=== PATIENT | female | born 1975 | race Caucasian/White ===

== ENCOUNTER → 2020-02-19 07:55 | Outpatient (CLI) | payer OTHER, SELFPAY ==
--- NOTE | ~2020-02-19 | MM_ITS ---
EXAMINATION: MM screening aguilar BI w vida HISTORY: Screening mammogram TECHNIQUE: Craniocaudal and mediolateral oblique 3-D tomosynthesis images were obtained and synthetic 2-D images were generated. CAD analysis was submitted and interpreted. COMPARISON: 07/20/2017, 11/05/2014 bilateral digital screening mammogram examinations BREAST PARENCHYMAL COMPOSITION: There are scattered areas of fibroglandular density. FINDINGS: There is no evidence of suspicious mass, calcification, or architectural distortion to sugg est malignancy in either breast. There has been no suspicious interval change. IMPRESSION: 1. No mammographic evidence of malignancy. 2. Recommend routine screening mammography in one year. BI-RADS Category 1: Negative Reviewed, dictated and finalized at location A. UITMENT OFFICER
== END ==
PROVIDERS: PCP Family Medicine; Visit Provider Nurse Practitioner
DX: Z12.31 Encounter for screening mammogram for malignant neoplasm of breast (principal)
CPT/HCPCS: 77063; 77067

== ENCOUNTER → 2021-02-13 08:09 | Outpatient (CLI) | payer OTHER, SELFPAY ==
--- NOTE | ~2021-02-13 | US_ITS ---
EXAMINATION: US abdomen complete EXAM DATE: 02/13/2021 09:01 INDICATION: R10.11 - Right upper quadrant pain. TECHNIQUE: Multiple grayscale and Doppler images of the complete abdomen were obtained (by a technolo gist who performed the scan) and subsequently reviewed. There is no prior study for comparison. FINDINGS: The abdominal aorta is normal in caliber. Visualized portion IVC is patent. The pancreatic head a nd body are normal in appearance. The pancreatic tail is not visualized. There is echogenic liver parenchyma, hepatic steatosis. There are no focal liver lesions identified. There is no evidence of intrahepatic biliary duct dilation. Portal venous flow was seen in the he patopedal, normal direction and has normal Doppler waveform. Common bile duct measures 3 mm, which is normal. The gallbladder wall is normal in thickness, with ex pected amount of distention. No sonographic evidence of pericholecystic fluid. There is no cholelit hiases. Technologist performing exam reports patient did not demonstrate sonographic Segovia's sign. Please note that this sign is less reliable in patients who have received pain medication. Right kidney: There is normal contour and echogenicity. It measures 10.4 x 4.6 x 4.8 centimeters. There are no focal renal lesions identified. There is no hydronephrosis. Left kidney: There is normal contour and echogenicity. It measures 9.0 x 6.0 x 5.6 centimeters. Th ere are no focal renal lesions identified. There is no hydronephrosis. The spleen measures 11 centimeters and is morphologically normal. IMPRESSION: 1. Hepatic steatosis. Reviewed, dictated and finalized at location A. ORATE LEGAL ASSISTANT IMPRESSION: 1. Hepatic steatosis.
== END ==
PROVIDERS: PCP Family Medicine; Visit Provider Nurse Practitioner Family
DX: R10.11 Right upper quadrant pain (principal); K76.0 Fatty (change of) liver, not elsewhere classified
CPT/HCPCS: 76700

== ENCOUNTER 2021-02-25 07:50 | Outpatient (CLI) | payer OTHER, SELFPAY ==
[2021-02-25 09:51] LABS: Hematocrit 43.2 % (37.0-47.0); Hemoglobin 14.4 g/dL (12.0-15.0); Mean Corpuscular HGB Conc 33.3 g/dl (32-36); Mean Corpuscular Hemoglobin 31.5 pg (26-34); Mean Corpuscular Volume 94.5 fl (80-100); Mean Platelet Volume 10.5 fl (7.4-10.4); Platelet Count Result 232 k/mm3 (150-375); Red Blood Count 4.57 M/mm3 (4.2-5.4); White Blood Count 9.6 K/mm3 (4.5-10.0)
[2021-02-25 10:04] LABS: Alanine Aminotransferase 67 U/L (4-35); Albumin Level 4.2 g/dL (3.5-5.1); Alkaline Phosphatase 120 U/L (38-126); Anion Gap 11 mmol/L (8-16); Aspartate Amino Transferase 52 U/L (14-36); Bilirubin,Total 0.7 mg/dL (0.2-1.3); Blood Urea Nitrogen 11 mg/dL (7-17); Calcium 8.9 mg/dL (8.4-10.2); Carbon Dioxide 23 mmol/L (22-30); Chloride 106 mmol/L (98-107); Cholesterol 234 mg/dL (0-200); Estimated Glomerular Filt Rate > 60; Glucose 107 mg/dL (65-110); HDL Direct 41 mg/dL; Potassium 3.7 mmol/L (3.4-5.0); Sodium 140 mmol/L (137-145); Triglycerides 133 mg/dL (<150)
[2021-02-25 10:14] LABS: LDL Cholesterol Direct 148 mg/dL
[2021-02-27 20:42] LABS: GGT 24 U/L (3-55)
== END 2021-02-25 07:51 | disposition home or self-care (01) ==
LOC: ANHLAB 07:52
PROVIDERS: PCP Family Medicine; Visit Provider Nurse Practitioner Family
DX: K76.0 Fatty (change of) liver, not elsewhere classified (principal); E78.2 Mixed hyperlipidemia
CPT/HCPCS: 36415; 80053; 80061; 82977; 85027

== ENCOUNTER 2021-10-28 09:17 | Outpatient (CLI) | payer OTHER, SELFPAY ==
[2021-10-28 10:13] LABS: Alanine Aminotransferase 32 U/L (6-35); Albumin Level 3.9 g/dL (3.5-5.1); Alkaline Phosphatase 111 U/L (38-126); Anion Gap 11 mmol/L (8-16); Aspartate Amino Transferase 34 U/L (14-36); Bilirubin,Total 0.7 mg/dL (0.2-1.3); Blood Urea Nitrogen 13 mg/dL (7-17); Calcium 8.4 mg/dL (8.4-10.2); Carbon Dioxide 21 mmol/L (22-30); Chloride 108 mmol/L (98-107); Cholesterol 231 mg/dL (0-200); Estimated Glomerular Filt Rate > 60; Glucose 119 mg/dL (65-110); HDL Direct 34 mg/dL; Potassium 4.3 mmol/L (3.4-5.0); Sodium 140 mmol/L (137-145); Triglycerides 177 mg/dL (<150)
[2021-10-28 10:24] LABS: LDL Cholesterol Direct 144 mg/dL
[2021-10-28 13:08] LABS: Hemoglobin A1C 5.4 % (<5.7)
== END 2021-10-28 09:18 | disposition home or self-care (01) ==
LOC: ANHLAB 09:20
PROVIDERS: PCP Family Medicine; Visit Provider Nurse Practitioner Family
DX: Z13.1 Encounter for screening for diabetes mellitus (principal); R74.8 Abnormal levels of other serum enzymes; K76.0 Fatty (change of) liver, not elsewhere classified; R73.09 Other abnormal glucose; Z13.29 Encounter for screening for other suspected endocrine disorder; E78.2 Mixed hyperlipidemia
CPT/HCPCS: 36415; 80053; 80061; 83036; 84443

== ENCOUNTER 2023-12-19 08:10 | Outpatient (CLI) | payer OTHER, SELFPAY ==
--- NOTE | ~2023-12-19 | MMUS_ITS ---
EXAMINATION: MM diagnostic aguilar BI w vida, US breast LT limited HISTORY: Palpable left breast lump TECHNIQUE: Additional 3-D tomosynthesis images of the breasts were performed and synthetic 2-D images were generated. CAD analysis was submitted and interpreted. High resolution Limited left breast ultr asound was performed. COMPARISON: Comparison to multiple prior studies sequentially, with oldest reviewed study dated 07/20. BREAST PARENCHYMAL COMPOSITION: Not Dense: The breasts are almost entirely fatty. FINDINGS: MAMMOGRAPHIC FINDINGS: There are no suspicious masses, calcifications or architectural distortion in either breast to sugges t malignancy. ULTRASOUND: Limited left breast ultrasound: Normal heterogeneous echotexture without focal solid or cystic mass. IMPRESSION: 1. No evidence for malignancy in either breast. 2. Routine yearly screening mammogram and regular clinical breast examination are recommended. BI-RADS Category 1: Negative Reviewed, dictated and finalized at location B. IMPRESSION: 1. No evidence for malignancy in either breast. 2. Routine yearly screening mammogram and regular clinical breast examination a re recommended. BI-RADS Category 1: Negative
== END 2023-12-19 08:11 | disposition home or self-care (01) ==
LOC: MICIMG 08:11
PROVIDERS: PCP Family Medicine; Visit Provider Obstetrics & Gynecology Gynecology
DX: N63.20 Unspecified lump in the left breast, unspecified quadrant (principal)
CPT/HCPCS: 76642; 77062; 77066; G0279

== ENCOUNTER 2024-05-28 08:19 | Outpatient (CLI) | payer OTHER, SELFPAY ==
--- OUTSIDE RECORDS SUMMARY | 2024-05-28 08:31 | XMS_ITS | Referral Summary ---
Author Organization [facility] [employer] Address [address] [place] [address] Care Team Providers Care Court Stenographer Name Role Phone Juan Carlos Oshea MD Primary Care Provider [phone] Source Comments [facility] [employer],non-owned Affiliates and Associated Physician Practices is amultiple site organization consisting of ambulatory clinics and hospital sitesin [place], [place], [place] and [place]. This disclosure is being madepursuant to the Care Everywhere program and may not contain all information available regarding this patient. Last updated 17.[employer] Allergies No known active allergies Medications * Be aware that medications may not be up to date on this document. Alwaysverify current medications with the patient. Medication Sig Dispensed Refills Start Date End Date Status Multiple Vitamin (MULTIVITAMINS PO) Active Levocetirizine Dihydrochloride (XYZAL PO) Active VITAMIN D, CHOLECALCIFEROL, PO Activ e Escitalopram Oxalate (LEXAPRO PO)Indications:for anxiety Reasons: for anxiety Active Social History Tobacco Use Types Packs/Day Years Used Date Smoking Tobacco: Never Smokeless Tobacco: Never Sex and Gender Information Value Date Recorded Sex Assigned at Female 02/10/2024 4:06 PM TOBACCO WEIGHER Gender Identity Female 02/10/2024 4:06 PM TOBACCO WEIGHER Sexual Orientation Straight 02/10/2024 4: 06 PM TOBACCO WEIGHER Last Filed Vital Signs Vital Sign Reading Time Taken Comments Blood Pressure 110/70 05/14/2018 9:55 AM TOBACCO WEIGHER Pulse 115 05/14/2018 9:55 AM TOBACCO WEIGHER Temperature 38 C (100.4 F) 05/14/2018 9:55 AM TOBACCO WEIGHER Respiratory Rate 19 02/10/2018 5:41 PM TOBACCO WEIGHER Oxygen Saturation 96% 05/14/2018 9:55 AM TOBACCO WEIGHER Inhaled Oxygen Concentration - - Weight 83.9 kg (185 lb) 05/14/2018 9:55 AM TOBACCO WEIGHER Height 160 cm (5' 3 ) 05/14/2018 9:55 AM TOBACCO WEIGHER Body Mass Index 32.77 05/14/2018 9:55 AM TOBACCO WEIGHER Plan of Treatment Not on file Care Teams Court Stenographer Relationship Specialty Start Date End Date Juan Carlos Oshea MD [address] [place] [address] PCP - General Family Medicine 07/18/16
--- OUTSIDE RECORDS SUMMARY | 2024-05-28 08:31 | XMS_ITS | Clinical Summary ---
Author Organization [facility] [employer] Address [address] [place] [address] Care Team Providers Care Dental Instructor Name Role Phone Juan Carlos Oshea MD Primary Care Provider [phone] Source Comments [employer],non-owned Affiliates and Associated Physician Practices is amultiple site organization consisting of ambulatory clinics and hospital sitesin [place], [place], [place] and [place]. This disclosure is being madepursuant to the Care Everywhere program and may not contain all information available regarding this patient. Last updated 17.[employer] Allergies No known active allergies Medications * [...] Sex Assigned at Female 02/10/2024 4:06 PM ROTARY SURFACE GRINDER Gender Identity Female 02/10/2024 4:06 PM ROTARY SURFACE GRINDER Sexual Orientation Straight 02/10/2024 4: 06 PM ROTARY SURFACE GRINDER Last Filed Vital Signs Vital Sign Reading Time Taken Comments Blood Pressure 110/70 05/14/2018 9:55 AM ROTARY SURFACE GRINDER Pulse 115 05/14/2018 9:55 AM ROTARY SURFACE GRINDER Temperature 38 C (100.4 F) 05/14/2018 9:55 AM ROTARY SURFACE GRINDER Respiratory Rate 19 02/10/2018 5:41 PM ROTARY SURFACE GRINDER Oxygen Saturation 96% 05/14/2018 9:55 AM ROTARY SURFACE GRINDER Inhaled Oxygen Concentration - - Weight 83.9 kg (185 lb) 05/14/2018 9:55 AM ROTARY SURFACE GRINDER Height 160 cm (5' 3 ) 05/14/2018 9:55 AM ROTARY SURFACE GRINDER Body Mass Index 32.77 05/14/2018 9:55 AM ROTARY SURFACE GRINDER Plan of Treatment Health Maintenance Due Date Last Done Comments COLOGUARD (AGES 45-75) - COL ON CA SCREENING 1974 COLON MONITORING 1974 COLONOSCOPY - COLON CA SCREENING 1974 CT COLONOGRAPHY - COLON CA SCREENING 1974 Colorectal Cancer Screening 1974 FIT - COLON CA SCREENING 1974 FLEX SIG - COLON CA SCREENING 1974 LIPID TESTING 1974 PAP SMEAR 1974 HIV SCREENING 1989 HEPATITIS C SCREENING 03/13/1992 DTAP/TDAP/TD VACCINES (1 - Tdap) 1993 HEPATITIS B VACCINE (1 of 3 - 19+ 3-dose series) 1993 SCREENING FOR DIABETES 04/05/2017 COVID-19 VACCINE (1 - 2023-2 5 season) 2023 INFLUENZA VACCINE (#1) 2023 PNEUMOCOCCAL VACCINE 50+ (1 of 1 - PCV) 2024 ZOSTER VACCINE (1 of 2) 2024 DEPRESSION SCREENING 03/25/2024 MAMMOGRAM 01/30/2026 01/31/2024 HIB VACCINE Aged Out No longer eligi ble based on patient's age to complete this topic HPV VACCINE Aged Out No longer eligi ble based on patient's age to complete this topic MENINGOCOCCAL (Group B) VACCINE Aged Out No longer eligible based on patient's age to complete this topic MENINGOCOCCAL VACCINE Aged Out No misbah glenn eligible based on patient's age to complete this topic PNEUMOCOCCAL VACCINE Aged Out No long er eligible based on patient's age to complete this topic Care Teams Dental Instructor Relationship Specialty Start Date End Date Juan Carlos Oshea MD [address] [place] [address] PCP - General Family Medicine 07/18/16
--- OUTSIDE RECORDS SUMMARY | 2024-05-28 08:31 | XMS_ITS | Patient Health Summary ---
Author Organization [facility] [employer] Address [address] [place] [address] Care Team Providers Care Bit Sharpener Name Role Phone Juan Carlos Oshea MD Primary Care Provider [phone] Note from [facility],non-owned Affiliates and Associated Physician Practices is amultiple site organization consisting of ambulatory clinics and hospital sitesin [place], [place], [place] and [place]. This disclosure is being madepursuant to the Care Everywhere program and may not contain all information available regarding this patient. Last updated 17.[facility] [employer] Allergies No known active allergies Medications * Be aware that medications may not be up to date on this document. Alwaysverify current medications with the patient. * Multiple Vitamin (MULTIVITAMINS PO) * Levocetirizine Dihydrochloride (XYZAL PO) * VITAMIN D, CHOLECALCIFEROL, PO * Escitalopram Oxalate (LEXAPRO PO) Reasons: for anxiety Social History Tobacco Use Types Packs/Day Years Used Date Smoking Tobacco: Never Smokeless Tobacco: Never Sex and Gender Information Value Date Recorded Sex Assigned at Female 02/10/2024 4:06 PM SUPERVISOR ELEMENTARY EDUCATION Gender Identity Female 02/10/2024 4:06 PM SUPERVISOR ELEMENTARY EDUCATION Sexual Orientation Straight 02/10/2024 4: 06 PM SUPERVISOR ELEMENTARY EDUCATION Last Filed Vital Signs Vital Sign Reading Time Taken Comments Blood Pressure 110/70 05/14/2018 9:55 AM SUPERVISOR ELEMENTARY EDUCATION Pulse 115 05/14/2018 9:55 AM SUPERVISOR ELEMENTARY EDUCATION Temperature 38 C (100.4 F) 05/14/2018 9:55 AM SUPERVISOR ELEMENTARY EDUCATION Respiratory Rate 19 02/10/2018 5:41 PM SUPERVISOR ELEMENTARY EDUCATION Oxygen Saturation 96% 05/14/2018 9:55 AM SUPERVISOR ELEMENTARY EDUCATION Inhaled Oxygen Concentration - - Weight 83.9 kg (185 lb) 05/14/2018 9:55 AM SUPERVISOR ELEMENTARY EDUCATION Height 160 cm (5' 3 ) 05/14/2018 9:55 AM SUPERVISOR ELEMENTARY EDUCATION Body Mass Index 32.77 05/14/2018 9:55 AM SUPERVISOR ELEMENTARY EDUCATION Procedures * STREP A SCREEN - POINT OF CARE (AMB) STL(Performed 05/14/2018) Performed for Acute URI * INFLUENZA A+B - POINT OF CARE (AMB)(Performed 05/14/2018) Performed for Acute URI * CULTURE URINE(Performed 02/10/2018) Performed for Acute cystitis without hematuria * URINALYSIS AUTO - POINT OF CARE (AMB) STL(Performed 02/10/2018) Performed for Acute cystitis without hematuria * STREP A SCREEN - POINT OF CARE (AMB) STL(Performed 07/18/2016) Performed for Acute pansinusitis, recurrence not specified Results * STREP A SCREEN (05/14/2018) Only the most recent of2 resultswithin the time period is included. Strep A Rapid POCT Negative Negative Strep A Internal Control Present Lot # [id number] Expiration Date 12/23/19 Throat ENTIRE THROAT (SURFACE REGION OF NECK) / Unknown 05/14/2018 Melvi Medel APRN-UTILIZATION MANAGER LAB - POINT OF CA RE ORDERABLES * INFLUENZA A+B - POINT OF CARE (AMB) (05/14/2018) Influenza A Antigen Rapid Negative Negative Influenza B Antigen Rapid Negative Negative Influenza Internal Control yes NEGATIVE - POSITIVE Influenza Lot Number [id number] Influenza Expiration Date 11/27/19 Other NASOPHARYNGEAL SWAB / Unknown 05/14/2018 Melvi Medel APRN-UTILIZATION MANAGER LAB - POINT OF CA RE ORDERABLES * CULTURE URINE (02/10/2018 5:51 PM SUPERVISOR ELEMENTARY EDUCATION) Pathologist [facility] Urine Culture Routine Final report [facility] ACCOUNT BILL Result 1 [facility] ACCOUNT BILL Comment: Mixed urogenital brooke 10,000-25,000 colony forming units per mL Urine URINE SPECIMEN OBTAINED BY CLEAN CATCH PROCEDURE / Unknown 02/10/2018 5:51 PM SUPERVISOR ELEMENTARY EDUCATION 02/11/2018 Narrative Resulting Agency Comment [facility] [id number] [facility] [id number] Melvi Meedl CONCRETE RUBBER-UTILIZATION MANAGER LAB - MICROBIOLOG Y ORDERABLES [facility] [place] [address] [place] [address] * URINALYSIS AUTO - POINT OF CARE (AMB) STL (02/10/2018) Clarity UA POCT clear Color UA POCT Light yellow Leukocyte UA neg Negative Nitrite UA POCT neg Negative Urobilinogen UA 0.2 0.1 - 1.0 Protein UA POCT neg Negative pH UA 5.0 5.0 - 8.0 pH units Blood UA neg Negative Specific [place] UA POCT 1.020 1.002 - 1.030 Ketone UA neg Negative Bilirubin UA POCT neg Negative Glucose UA neg Negative Expiration Date 11/06/19 Lot # [id number] Verified Yes Yes Urine URINE / Unknown 02/10/2018 Melvi M Gianfranco OLIVAREZN-UTILIZATION MANAGER LAB - POINT OF CA RE ORDERABLES Care Teams Bit Sharpener Relationship Specialty Start Date End Date Juan Carlos Oshea MD [address] [place] [address] PCP - General Family Medicine 07/18/16
--- OUTSIDE RECORDS SUMMARY | 2024-05-28 08:31 | XMS_ITS | Clinical Summary ---
Author Organization [facility] Address [address] [place] [id number] Care Team Providers Care Marine Designer Name Role Phone Juan Carlos Oshea MD Primary Care Provider [phone] Paulina Perkins MD Unavailable [phone] Allergies Active Allergy Reactions Criticality Noted Date Comments Honey Diarrhea Low 09/04/2012 Latex Rash Medium 09/04/2012 Medications levocetirizine (XYZAL) 5 mg tablet Take 1 tablet (5 mg total) by mouth every evening Active metFORMIN (GLUCOPHAGE) 500 mg tablet TAKE 1 TABLET BY MOUTH DAILY FOR 2 WEEKS THEN 2 TABLETS BY MOUTH DAILY. 12/22/2023 Active multivitamin tablet Take 1 tablet by mouth daily Active cholecalciferol (VITAMIN D-3) 2000 unit tablet Active PARoxetine (PAXIL) 10 mg tablet Take 1 tablet (10 mg total) by mouth daily 01/17/2024 Active Active Problems Problem Noted Date Diagnosed Date Sleep-disordered breathing 03/20/2017 Assessment & Plan (03/20/2017 12:30 PM MIRROR DEPARTMENT SUPERVISOR): Patient's home sleep study revealed no evidence of obstructive sleep apnea. It appears as though patient's snoring and sleep disordered breathing is primarily centered around her obesity. Patient admittedly states that when she loses weight her snoring resolves and her sleep pattern improves. Patient would benefit from nutritional and dietary consultation and weight loss program. I also gave patient information on oral appliance for mandibular advancement that she can use to help with her excessive snoring. BMI 36.0-36.9,adult 01/21/2017 Assessment & Plan (01/21/2017 3:29 PM CDT): Patient was counseled today on reducing BMI through lifestyle modification as means to reduce sleep symptoms. Patient provided recommendations on mild to moderate intensity exercise daily. Snoring 01/16/2017 Assessment & Plan (01/21/2017 3:26 PM CDT): Ms. Hooker is a a 41 year old female who complains of snoring, sleep disturbance and daytime sleepiness. Symptoms have been progressive x 4 years. Based on patients history of present illness and examination today, I would like her to complete a home polysomnogram to evaluate for sleep apnea. Patient is in agreement with this plan. Order will be sent to [facility] for home polysomnogram x 3 nights. I will call with results and discuss follow up plan. Daytime sleepiness 01/16/2017 Assessment & Plan (01/16/2017 2:17 PM CDT): Merkel sleepiness score = 11. Umbilical hernia 09/11/2012 Ventral hernia 09/11/2012 Breast hypertrophy 09/10/2012 Excess skin of abdomen 09/10/2012 Encounters Date Type Department Care Team Description 05/05/2024 3:00 AM MIRROR DEPARTMENT SUPERVISOR - 05/05/2024 11:59 PM [facility] [place] [place] [address] Discharge Disposition: Discharge to home or self care from Last 3 Months Surgical History Surgery Date Site/Laterality Comments REDUCTION MAMMAPLASTY 03/25/2013 - 03/24/2014 Bilateral CHOLECYSTECTOMY 03/25/2009 - 03/24/2010 SECTION 03/25/2003 - 03/24/2004 SECTION 03/25/2005 - 03/24/2006 HERNIA REPAIR 03/25/2013 - 03/24/2014 Family History Medical History Relation Name Comments Breast cancer Maternal Grandmother Breast cancer Paternal Grandmother Relation Name Status Comments Maternal Grandmother Paternal Grandmother Social History Tobacco Use Types Packs/Day Years Used Date Smoking Tobacco: Never Smokeless Tobacco: Never Alcohol Use Standard Drinks/Week Comments Yes 0 (1 standard drink = 0.6 oz pur e alcohol) Comments Unknown Sex and Gender Information Value Date Recorded Sex Assigned at Not on file Legal Sex Female 3:11 AM MIRROR DEPARTMENT SUPERVISOR Gender Identity Not on file Sexual Orientation Not on file Obstetrics History Last Filed Vital Signs Vital Sign Reading Time Taken Comments Blood Pressure 121/83 02/04/2024 10:04 AM MIRROR DEPARTMENT SUPERVISOR Pulse 89 02/04/2024 10:04 AM MIRROR DEPARTMENT SUPERVISOR Temperature 36.6 C (97.9 F) 02/04/2024 10:04 AM MIRROR DEPARTMENT SUPERVISOR Respiratory Rate 18 02/04/2024 10:04 AM MIRROR DEPARTMENT SUPERVISOR Oxygen Saturation 97% 02/04/2024 10:04 AM MIRROR DEPARTMENT SUPERVISOR Inhaled Oxygen Concentration - - Weight 87.1 kg (192 lb) 02/04/2024 10:01 AM MIRROR DEPARTMENT SUPERVISOR Height 158 cm (5' 2.21 ) 02/04/2024 10:01 AM MIRROR DEPARTMENT SUPERVISOR Body Mass Index 34.89 02/04/2024 10:01 AM MIRROR DEPARTMENT SUPERVISOR Plan of Treatment Health Maintenance Due Date Last Done Comments Breast Cancer Screening-Mammogram 1974 Cervical Cancer Screening 1974 Colon Cancer Screening-Colonoscopy 1974 Depression Screening 1974 Hepatitis C Screening 1974 DTaP/Tdap/Td Vaccine (1 - Tdap) 1985 Hepatitis B Screening 1992 Regular Well Visit/Exam 18-64 1992 Influenza Vaccine (#1) 2023 02/03/2019 Zoster Vaccine (1 of 2) 2024 Pneumococcal vaccine <65 Aged Out No longer eligible based on patient's age to complete this topic Procedures Procedure Name Priority Date/Time Associated Diagnosis Comments HEPATITIS B SURFACE ANTIBODY (IMMUNE STATUS) Routine 05/05/2024 3:00 PM MIRROR DEPARTMENT SUPERVISOR from Last 3 Months Results * Hepatitis B surface antibody (immune status) Blood (05/05/2024 3:00 PM MIRROR DEPARTMENT SUPERVISOR) HBsAb (immune status) Nonreactive Comment:This result is consi stent with a lack of immunity to Hepatitis B Virus when used in the setting of routine screening. Current interpretative data was last revised on 21 Blood 05/05/2024 3:00 PM MIRROR DEPARTMENT SUPERVISOR 05/05/2024 6:31 PM MIRROR DEPARTMENT SUPERVISOR us Shaheed Page MD LAB MICROBIOLOGY - GENER AL ORDERABLES Final Result [facility] [place] [address] from Last 3 Months Insurance CHOICE PLUS CHOICE PLUS [facility] CHOICE PLUS Care Teams Marine Designer Relationship Specialty Start Date End Date Juan Carlos Oshea MD PCP - General Family Medicine 01/11/17 Paulina Perkins MD [address] [facility] [address] [place] [id number] Referring Physician Gynecology 01/16/24
--- OUTSIDE RECORDS SUMMARY | 2024-05-28 08:31 | XMS_ITS | Referral Summary ---
Author Organization [facility] Address [address] [place] [phone] Care Team Providers Care Ship Carpenter Name Role Phone Juan Carlos Oshea MD Primary Care Provider [phone] Paulina Perkins MD Unavailable [phone] Encounters Date Type Department Care Team Description 05/05/2024 3:00 AM PLUMBER - 05/05/2024 11:59 PM PLUMBER [place] [address] Discharge Disposition: Discharge to home or self care from Last 3 Months Allergies Active Allergy Reactions Criticality Noted Date [...] 03/20/2017 Assessment & Plan (03/20/2017 12:30 PM PLUMBER): Patient's home sleep study revealed no evidence [...] this plan. Order will be sent to [facility] for home polysomnogram x 3 nights. I will call with results and discuss follow up plan. Daytime sleepiness 01/16/2017 Assessment & Plan (01/16/2017 2:17 PM CDT): [place] sleepiness score = 11. Umbilical hernia 09/11/2012 Ventral hernia 09/11/2012 Breast hypertrophy 09/10/2012 Excess skin of abdomen 09/10/2012 Social History Tobacco Use Types Packs/Day Years Used Date Smoking Tobacco: Never Smokeless Tobacco: Never Alcohol Use Standard Drinks/Week Comments Yes 0 (1 standard drink = 0.6 oz pur e alcohol) Comments Unknown Sex and Gender Information Value Date Recorded Sex Assigned at Not on file Legal Sex Female 3:11 AM PLUMBER Gender Identity Not on file Sexual Orientation Not on file Last Filed Vital Signs Vital Sign Reading Time Taken Comments Blood Pressure 121/83 02/04/2024 10:04 AM PLUMBER Pulse 89 02/04/2024 10:04 AM PLUMBER Temperature 36.6 C (97.9 F) 02/04/2024 10:04 AM PLUMBER Respiratory Rate 18 02/04/2024 10:04 AM PLUMBER Oxygen Saturation 97% 02/04/2024 10:04 AM PLUMBER Inhaled Oxygen Concentration - - Weight 87.1 kg (192 lb) 02/04/2024 10:01 AM PLUMBER Height 158 cm (5' 2.21 ) 02/04/2024 10:01 AM PLUMBER Body Mass Index 34.89 02/04/2024 10:01 AM PLUMBER Plan of Treatment Not on file Procedures Procedure Name Priority Date/Time Associated Diagnosis Comments HEPATITIS B SURFACE ANTIBODY (IMMUNE STATUS) Routine 05/05/2024 3:00 PM PLUMBER from Last 3 Months Results * Hepatitis B surface antibody (immune status) Blood (05/05/2024 3:00 PM PLUMBER) HBsAb (immune status) Nonreactive Comment:This result is consi stent with a lack of immunity to Hepatitis B Virus when used in the setting of routine screening. Current interpretative data was last revised on 21 Blood 05/05/2024 3:00 PM PLUMBER 05/05/2024 6:31 PM PLUMBER us Shaheed Page MD LAB MICROBIOLOGY - GENER AL ORDERABLES Final Result Performing Organization Address City/State/[facility] Co de Phone Number [facility] [place] [address] from Last [address] [facility] CHOICE PLUS [facility]/PPO Address: [address] [place] [address] [facility]MO/PPO Address: [address] [place] [address] [facility] HMO/PPO Address: [address] [place] [address] [place] [address] Care Teams Ship Carpenter Relationship Specialty Start Date End Date Juan Carlos Oshea MD PCP - General Family Medicine 01/11/17 Paulina Perkins MD [address] [place] [address] Referring Physician Gynecology 01/16/24
--- OUTSIDE RECORDS SUMMARY | 2024-05-28 08:31 | XMS_ITS | Clinical Summary ---
Author Organization [facility] Address [address] [place] [id number] Phone Care Team Providers Care Aboriginal Education Worker Coordinator Name Role Phone Juan Carlos Oshea MD Primary Care Provider [phone] Allergies Active Allergy Reactions Criticality Noted Date Comments Honey Diarrhea Low 09/04/2012 Latex Rash Low 09/04/2012 Medications levocetirizine (XYZAL) 5 mg Oral tablet Take 5 mg by mouth Daily LATE. Active multivitamin (DAILY-JOEL) Oral tablet Take 1 Tab by mouth daily. Active Active Problems Problem Noted Date Diagnosed Date Umbilical hernia 09/11/2012 Ventral hernia 09/11/2012 Breast hypertrophy 09/10/2012 Excess skin of abdomen 09/10/2012 Social History Tobacco Use Types Packs/Day Years Used Date Smoking Tobacco: Never Alcohol Use Standard Drinks/Week Comments Yes 0 (1 standard drink = 0.6 oz pur e alcohol) 2/MONTH Comments Unknown Sex and Gender Information Value Date Recorded Sex Assigned at Not on file Legal Sex Female 10:09 AM CDT Gender Identity Not on file Sexual Orientation Not on file Last Filed Vital Signs Vital Sign Reading Time Taken Comments Blood Pressure 110/70 09/11/2012 11:39 AM CDT Pulse 74 09/11/2012 11:39 AM CDT Temperature 37.1 C (98.7 F) 09/11/2012 11:39 AM CDT Respiratory Rate 18 09/11/2012 11:39 AM CDT Oxygen Saturation 98% 09/11/2012 11:39 AM CDT Inhaled Oxygen Concentration - - Weight 85.7 kg (189 lb) 09/10/2012 6:35 AM CDT Height 160 cm (5' 3 ) 09/04/2012 10:03 AM CDT Body Mass Index 33.48 09/04/2012 10:03 AM CDT Plan of Treatment Health Maintenance Due Date Last Done Comments DTAP/TDAP/TD VACCINES (1 - Tdap) 1993 HEPATITIS B VACCINES (1 of 3 - 19+ 3-dose series) 02/23 CERVICAL CANCER SCREENING 2004 BREAST CANCER SCREENING 2014 COLORECTAL SCREENING 2019 Colorectal Cancer Screening 2019 FIT-DNA Q 3 years 2019 FIT/FOBT Q 1 year 2019 Flex Sig/CT Colonography Q 5 years 2019 INFLUENZA VACCINE (#1) 2023 ZOSTER VACCINE (1 of 2) 2024 Medical Devices Implanted Type Area Overhead Distribution Engineer Device Identifier Shelf Expiration Date Model / Serial / Lot Mesh Vicryl [id number] in Vkml - [id number] Implanted:Qty: 1 on 09/10/2012 by Heriberto Melendez MD at [facility] Mesh N/A: Abdomen [employer] 10/21/2016 VKML / / [id number] Description:Midline abdomen [facility] Advance Directives For more information, please contact: [phone] * Full Code (Latest Code Status on File) Date Activated Date Inactivated Comments 09/10/2012 2:04 PM 09/11/2012 6:00 PM * Full Code Date Activated Date Inactivated Comments 09/10/2012 8:26 AM 09/10/2012 2:04 PM * Full Code Date Activated Date Inactivated Comments 09/10/2012 6:37 AM 09/10/2012 8:26 AM Care Teams Aboriginal Education Worker Coordinator Relationship Specialty Start Date End Date Juan Carlos Oshea MD [address] [place] [id number] PCP - General Family Practice 09/04/12
[2024-05-28 09:01] LABS: Basophils Percent Auto 0.3 % (0.2-1.2); Eosinophils Percent Auto 0.2 % (0-4.4); Hematocrit 47.9 % (37.0-47.0); Hemoglobin 16.1 g/dL (12.0-15.0); Immature Granulocyte Absolute 0.04 K/mm3 (0.00-0.031); Immature Granulocyte Percent A 0.4 % (0-0.5); Lymphocytes Absolute Auto 1.85 K/mm3 (0.9-3.2); Lymphocytes Percent Auto 19.3 % (18.3-44.2); Mean Corpuscular HGB Conc 33.6 g/dl (32-36); Mean Corpuscular Volume 92.3 fl (80-100); Mean Platelet Volume 10.2 fl (7.4-10.4); Monocytes Absolute Auto 0.3 K/mm3 (0.1-0.6); Monocytes Percent Auto 3.5 % (2.6-8.5); Neutrophils Absolute Auto 7.3 K/mm3 (1.3-6.7); Neutrophils Percent Auto 76.3 % (45.5-73.1); Platelet Count Result 230 k/mm3 (150-375); Red Blood Count 5.19 M/mm3 (4.2-5.4); Red Cell Distribution Width 12.5 % (11.5-14.5); White Blood Count 9.6 K/mm3 (4.5-10.0)
[2024-05-28 09:11] LABS: Alanine Aminotransferase 26 U/L (6-35); Albumin Level 4.6 g/dL (3.5-5.1); Alkaline Phosphatase 122 U/L (38-126); Anion Gap 12 mmol/L (4-12); Aspartate Amino Transferase 32 U/L (14-36); Bilirubin,Total 0.8 mg/dL (0.2-1.3); Blood Urea Nitrogen 15 mg/dL (7-17); Calcium 9.5 mg/dL (8.4-10.2); Carbon Dioxide 26 mmol/L (22-30); Chloride 105 mmol/L (98-107); Cholesterol 286 mg/dL (0-200); Estimated Glomerular Filt Rate > 60; Glucose 102 mg/dL (65-110); HDL Direct 59 mg/dL; Potassium 4.5 mmol/L (3.4-5.0); Sodium 143 mmol/L (137-145); Triglycerides 118 mg/dL (<150)
[2024-05-28 09:22] LABS: LDL Cholesterol Direct 159 mg/dL
[2024-05-28 09:35] LABS: Vitamin D 25 Hydroxy 91.6 ng/mL
[2024-05-28 13:13] LABS: Dexamethasone Suppression Test 1.22 ug/dL
== END 2024-05-28 08:20 | disposition home or self-care (01) ==
PROVIDERS: PCP Family Medicine; Visit Provider Nurse Practitioner Adult Health
DX: E16.2 Hypoglycemia, unspecified (principal); Z13.1 Encounter for screening for diabetes mellitus; Z13.29 Encounter for screening for other suspected endocrine disorder; E78.2 Mixed hyperlipidemia; K76.0 Fatty (change of) liver, not elsewhere classified; R74.8 Abnormal levels of other serum enzymes
CPT/HCPCS: 36415; 80053; 80061; 82306; 82533; 84443; 85025